=== PATIENT | female | born 1985 ===

== ENCOUNTER 2016-11-02 17:40 | Emergency (ER) | payer SELFPAY ==
[2016-11-02 17:40] VITALS: BMI 29.2
[2016-11-02 17:54] VITALS: RESP 16
--- NOTE | 2016-11-02 19:26 | ED PDOC ---
HPI: Abdomen Time Seen by Provider: 11/02/16 18:38 Chief Complaint (Nursing): Abdominal Pain Chief Complaint (Provider): pelvic pain History Per: Patient, Fortune Teller (praveena 1917) Onset/Duration Of Symptoms: Days (1) Current Symptoms Are (Timing): Still Present Location Of Pain/Discomfort: Suprapubic Quality Of Discomfort: Dull, Pressure Associated Symptoms: denies: Fever Exacerbating Factors: None Alleviating Factors: None Additional Complaint(s): patient with 2 days of lower abdominal pain, squeezing and pressure in nature, coming in waves. Last Menstral Period: 09/20/2016 Past Medical History Reviewed: Historical Data, Nursing Documentation, Vital Signs Vital Signs: Last Vital Signs Temp 97.2 F L 11/02/16 23:20 Pulse 72 11/02/16 23:20 Resp 16 11/02/16 23:20 BP 120/72 11/02/16 23:20 Pulse Ox 99 11/04/16 10:52 - Medical History PMH: Asthma - Family History Family History: States: Unknown Family Hx - Social History Current smoker - smoking cessation education provided: No Alcohol: Occasional Drugs: Denies - Immunization History Hx Tetanus Toxoid Vaccination: No Hx Influenza Vaccination: No Hx Pneumococcal Vaccination: No - Home Medications Home Medications: Ambulatory Orders Medication Instructions Recorded Ibuprofen [Motrin] 600 mg PO Q6 #20 tab 09/25/16 Ibuprofen [Motrin Tab] 1 tab PO Q6 PRN #15 tab 11/02/16 - Allergies Allergies/Adverse Reactions: Allergies Allergy/AdvReac Type Severity Reaction Status Date / Time No Known Allergies Allergy Verified 09/25/16 19:53 Review of Systems ROS Statement: Except As Marked, All Systems Reviewed And Found Negative Constitutional: Negative for: Fever Cardiovascular: Negative for: Chest Pain Respiratory: Negative for: Cough, Shortness of Breath Gastrointestinal: Negative for: Vomiting, Diarrhea Genitourinary Female: Negative for: Dysuria, Vaginal Discharge, Vaginal Bleeding Skin: Negative for: Rash Neurological: Negative for: Headache Physical Exam - Reviewed Nursing Documentation Reviewed: Yes Vital Signs Reviewed: Yes - Physical Exam Appears: Positive for: Well, Uncomfortable Skin: Positive for: Normal Color, Warm Eye Exam: Positive for: Normal appearance ENT: Positive for: Normal ENT Inspection Neck: Positive for: Normal, Painless ROM Cardiovascular/Chest: Positive for: Regular Rate, Rhythm Respiratory: Positive for: Normal Breath Sounds Gastrointestinal/Abdominal: Positive for: Soft, Tenderness (slight suprapubic tendernesss ). Negative for: Mass, Distended, Guarding Back: Negative for: L CVA Tenderness, R CVA Tenderness Extremity: Positive for: Normal ROM, Capillary Refill (normal ). Negative for: Tenderness Lymphatic: Positive for: Normal Exam Neurologic/Psych: Positive for: Alert, Oriented, Gait (normal ). Negative for: Motor/Sensory Deficits - Laboratory Results Result Diagrams: 11/02/16 19:54 11/02/16 19:54 Urine POC: Negative Urine dip results: Negative for: Leukocyte Esterase, Blood, Nitrate, Ketones, Glucose, Bilirubin, Protein - ECG O2 Sat by Pulse Oximetry: 99 Pulse Ox Interpretation: Normal Medical Decision Making Medical Decision Makin30 y/o female with pelvic pain, LMP 09/20/2016 (-) , (-) urine for UTI - labs - pelvic US Disposition - Clinical Impression Clinical Impression: Ovarian cyst - Patient ED Disposition Is Patient to be Admitted: Transfer of Care - Disposition [facility] Disposition: Transfer of Care Disposition Time: 20:00 Condition: STABLE Prescriptions: Ibuprofen [Motrin Tab] 1 tab PO Q6 PRN #15 tab PRN Reason: Pain, Moderate (4-7) Instructions: Ovarian Cyst (ED) Patient Signed Over To: Xenia Burns
[2016-11-02 20:03] LABS: BASO # 0.1 K/uL (0.0-0.2); BASO % 0.7 % (0.0-2.0); EOS # 0.1 K/uL (0.0-0.7); EOS % 1.2 % (0.0-4.0); LYMPH % 23.3 % (20.0-40.0); MEAN CELL VOLUME 89.1 fl (81.0-99.0); MEAN CORPUSCULAR HGB CONC 32.6 g/dL (33.0-37.0); MEAN PLATELET VOLUME 8.2 fl (7.2-11.7); MONO # 0.8 K/uL (0.0-0.8); MONO % 9.4 % (0.0-10.0); NEUT # 5.7 K/uL (1.8-7.0); NEUT % 65.4 % (50.0-75.0); WHITE BLOOD COUNT 8.8 K/uL (4.8-10.8)
[2016-11-02 20:12] LABS: ALB/GLOB RATIO 1.1 (1.0-2.1); ALKALINE PHOSPHATASE 51 U/L (38-126); ALT/SGPT 34 U/L (9-52); AST/SGOT 25 U/L (14-36); BILIRUBIN,TOTAL 0.4 mg/dl (0.2-1.3); BLOOD UREA NITROGEN 13 mg/dl (7-17); CARBON DIOXIDE 27 mmol/L (22-30); CHLORIDE 103 mmol/L (98-107); GFR AFRICAN-AMERICAN > 60; GLUCOSE,RANDOM 94 mg/dL (65-105); LIPASE 71 U/L (23-300); POTASSIUM 3.7 MMOL/L (3.6-5.0); SODIUM 143 mmol/l (132-148); TOTAL PROTEIN 7.7 G/DL (6.3-8.2)
--- NOTE | 2016-11-02 22:56 | US ---
EXAM: US Pelvis, Transvaginal. CLINICAL HISTORY: 30 years old, female; Pain; Pelvic pain TECHNIQUE: Real-time transvaginal pelvic ultrasound (complete) with image documentation. Transvaginal imaging was used for better evaluation of the endometrium and adnexa. EXAM DATE/TIME: 11/02/2016 10:02 PM COMPARISON: US - TRANSVAGINAL 09/25/2016 9:55:19 PM FINDINGS: Uterus: Uterus measures roughly 7 x 4 x 5 cm. Endometrium measures approximately 7.1 mm. Right ovary: Right ovary measures approximately 2.92 x 0.93 x 2.59 cm. There are multiple small follicles.There is expected blood flow on Doppler imaging. Left ovary: Left ovary measures approximately 3.02 x 2.06 x 3.01 cm. There is a 2.2 x 1.4 x 1.8 cm hemorrhagic left ovarian cyst. There are smaller follicles.There is expected blood flow on Doppler imaging IMPRESSION: Hemorrhagic left ovarian cyst, no torsion
--- NOTE | 2016-11-02 23:04 | ED PDOC ---
- Laboratory Results Result Diagrams: 11/02/16 19:54 11/02/16 19:54 Urine POC: Negative - ECG O2 Sat by Pulse Oximetry: 99 - Progress ED Course And Treament: Case endorsed to radio news writer from Venessa CARNES pending labs and u/s EXAM: US Pelvis, Transvaginal. CLINICAL HISTORY: 30 years old, female; Pain; Pelvic pain TECHNIQUE: Real-time transvaginal pelvic ultrasound (complete) with image documentation. Transvaginal imaging was used for better evaluation of the endometrium and adnexa. EXAM DATE/TIME: 11/02/2016 10:02 PM COMPARISON: US - TRANSVAGINAL 09/25/2016 9:55:19 PM FINDINGS: Uterus: Uterus measures roughly 7 x 4 x 5 cm. Endometrium measures approximately 7.1 mm. Right ovary: Right ovary measures approximately 2.92 x 0.93 x 2.59 cm. There are multiple small follicles.There is expected blood flow on Doppler imaging. Left ovary: Left ovary measures approximately 3.02 x 2.06 x 3.01 cm. There is a 2.2 x 1.4 x 1.8 cm hemorrhagic left ovarian cyst. There are smaller follicles.There is expected blood flow on Doppler imaging IMPRESSION: Hemorrhagic left ovarian cyst, no torsion Patient educated on findings, discharged with rx ibuprofen. Advised follow up [employer]. Return to ED for worsening/concerning symptoms. Disposition - Clinical Impression Clinical Impression: Ovarian cyst - POA Present On Arrival: None - Disposition [facility] Disposition: Routine/Home Disposition Time: 23:02 Prescriptions: Ibuprofen [Motrin Tab] 1 tab PO Q6 PRN #15 tab PRN Reason: Pain, Moderate (4-7) Instructions: Ovarian Cyst (ED)
[2016-11-02 23:21] VITALS: BP 120/72; PULSE 72; TEMP 97.2
[2016-11-04 10:53] VITALS: O2SAT 99
== END 2016-11-02 23:21 | disposition home or self-care (01) ==
LOC: H.ER 17:40
DX: N83.202 Unspecified ovarian cyst, left side (principal); R10.2 Pelvic and perineal pain
CPT/HCPCS: 76830; 80053; 81025; 83690; 85025; 87070; 87491; 87591; 96374; 99283; J1885